=== PATIENT | male | born 1975 | race Caucasian/White ===

== ENCOUNTER 2020-02-10 16:39 | Inpatient (IN) | payer BC, SELFPAY ==
[~2020-02-10] VITALS: Ht 177.8 cm; Wt 109.4 kg
[2020-02-10 16:50] VITALS: BP_SYST 158
--- NOTE | 2020-02-10 16:50 | NUR ---
PT TRIAGED, WAITING IN ER LOBBY. NO ER BEDS CURRENTLY AVAILABLE.
--- NOTE | 2020-02-10 16:55 | NUR ---
PT AAO AND AMBULATORY C/O RLQ ABDOMINAL PAIN FOR THE PAST TWO DAYS THAT IS CONSTANT IN NATURE. PT REPORTS 10/29 CURRENTLY.
[2020-02-10 17:58] LABS: BASOPHILS % (AUTO) 0.3 % (0.0-2.0); EOSINOPHILS # (AUTO) 0.1 K/uL (0.0-0.4); HEMATOCRIT 53.6 % (36-54); HEMOGLOBIN 17.9 g/dL (14.0-18.0); LYMPHOCYTES # (AUTO) 2.3 K/uL (1.0-5.5); LYMPHOCYTES % (AUTO) 16.4 % (20.5-51.5); MEAN CORPUSCULAR HEMOGLOBIN 29 pg (27-31); MEAN CORPUSCULAR HGB CONC 33 % (32-36); MEAN CORPUSCULAR VOLUME 86 fL (79.0-98.0); MONOCYTES # (AUTO) 1.1 K/uL (0.0-1.0); MONOCYTES % (AUTO) 7.9 % (1.7-9.3); NEUTROPHILS # (AUTO) 10.4 K/uL (1.8-7.7); NEUTROPHILS % (AUTO) 74.4 % (40.0-70.0); PLATELET COUNT (AUTO) 380 K/uL (130-430); RED BLOOD CELL COUNT(AUTO) 6.24 MIL/uL (4.2-6.2); RED CELL DISTRIBUTION WIDTH 13.9 % (9.0-15.0)
[2020-02-10 18:11] LABS: CALCIUM 10.1 mg/dL (8.4-11.0); CREATININE 1.13 mg/dL (0.55-1.30)
[2020-02-10 18:17] LABS: ALBUMIN 3.8 g/dL (3.4-4.8); TOTAL BILIRUBIN 0.7 mg/dL (0.0-1.0)
--- NOTE | 2020-02-10 18:36 | NUR ---
Patient to ER bed 07 to gown for evaluation. Side rails up.
--- NOTE | 2020-02-10 18:38 | NUR ---
ER at bedside examining patient.
[2020-02-10] MEDS ORDERED: KETOROLAC TROMETHAMINE 30 MG VIAL IVP ONE (18:45)
[2020-02-10] MEDS ORDERED: NACL 0.9% 1,000 ML IV ONE ×2 (18:45→20:15)
--- NOTE | 2020-02-10 18:46 | NUR ---
ALERT, CALM, RESP UNLABORED, SKIN WARM AND DRY. COMMUNICATES CLEARLY. C/O ABD PAIN , DULL ACHE OVER RLQ. DENIES FEVER/CHILLS, N,V,D NAD
--- NOTE | 2020-02-10 19:28 | NUR ---
BACK FROM CT. TOLERATED WELL
[2020-02-10] MEDS ORDERED: ONDANSETRON HCL 4 MG/2 ML VIAL IVP ONE (20:15)
[2020-02-10] MEDS ORDERED: PIPERACILLIN/TAZO 3.375 GM in NS 50 ML IV ONE (20:15)
--- NOTE | 2020-02-10 20:23 | NUR ---
DR CUMMINS IN TO DISCUSS RESULTS OF CT EXAM
--- NOTE | 2020-02-10 20:38 | NUR ---
CALM, ALERT, RESP UNLABORED, PAIN FREE, STATES FEELING BETTER. MEDICATED ORDERED
[2020-02-10] MEDS ORDERED: PIPERACILLIN/TAZOBACTAM 3.375 GM/VIAL (ZOSYN) IV ONE (20:45)
[2020-02-10] MEDS ORDERED: ONDANSETRON HCL 4 MG/2 ML VIAL ONE (20:46)
--- NOTE | 2020-02-10 22:45 | NUR ---
SBAR REPORT TO RN TO ASSUME CARE
[2020-02-11] MEDS ORDERED: MORPHINE 4 MG/ML INJ. SYRINGE IVP PRN
[2020-02-11] MEDS ORDERED: MORPHINE 2 MG/ML INJ. SYRINGE IVP PRN
[2020-02-11] MEDS: NACL 0.9% 1,000 ML IV SCH ×4 (00:48→20:53)
--- NOTE | 2020-02-11 01:20 | NUR ---
Patient will be admitted to care of . Admitted to [facility] unit. Will go to room 108c. Belongings list completed. Complete and up to date summary report printed. SBAR report to be given at bedside with opportunity for questions.
--- NOTE | 2020-02-11 01:47 | NUR ---
ADMISSION: The patient, ELEN ROSA, 45 y/o, M admitted by DANIEL WOLF MD, was given written information regarding hospital policies, unit procedures and contact persons. Valuables were checked and signed.
--- NOTE | 2020-02-11 01:47 | NUR ---
REPORT WAS ENDORSED FROM ER NURSE. SHOWED ER NURSE THE WBC. ASKED ABOUT LACTIC ACID DRAWS. ER NURSES STATED I GUESS THE DOCTOR DOESN'T WANT IT.
--- NOTE | 2020-02-11 01:50 | NUR ---
INITIAL NOTES PATIENT IS STABLE AND LAYING IN BED. NO S/S OF RESPIRATORY DISTRESS NOTED. CALL LIGHT IN REACH. PATIENT EDUCATED ROUTE DELIVERY MANAGER LIGHT. PATIENT SUCCESSFULLY DEMONSTRATES USAGE OF CALL LIGHT. BED IS LOCKED, AND AT THE LOWEST POSITION. PATIENT EDUCATE DON BED ALARM, PATIENT REFUSED. PLAN OF CARE IS DISCUSSED WITH PATIENT. FALL, SAFETY, ASPIRATION, AND RESPIRATORY PRECAUTIONS WILL BE IN PLACET THROUGHOUT THE SHIFT.
[2020-02-11 01:53] VITALS: BP_SYST 124
[2020-02-11] MEDS ORDERED: PRAV80TA20 PO (02:18)
[2020-02-11] MEDS ORDERED: PANT40TA4 PO (02:18)
[2020-02-11] MEDS ORDERED: LOP600 PO (02:18)
[2020-02-11] MEDS ORDERED: PIPERACILLIN/TAZOBACTAM 3.375 GM/VIAL (ZOSYN) IV ONE (03:16)
[2020-02-11] MEDS: PIPERACILLIN/TAZO 3.375/DEX-IS 50 ML IV SCH ×4 (03:30→20:54)
[2020-02-11 03:34] VITALS: BP_SYST 124
--- NOTE | 2020-02-11 03:52 | NUR ---
PATIENT IS STABLE AND SLEEPING IN BED. NO S/S OF RESPIRATORY DISTRESS NOTED. CALL LIGHT IN REACH.
--- NOTE | 2020-02-11 06:56 | NUR ---
CLOSING NOTES PATIENT IS STABLE AND LAYING IN BED. NO S/S OF RESPIRATORY DISTRESS NOTED. CALL LIGHT IN REACH. BED IS LOCKED, AND AT THE LOWEST POSITION. FALL, SAFETY, ASPIRATION, RESPIRATORY PRECAUTIONS HAS BEEN IN PLACE THROUGHOUT THE SHIFT. WILL CONTINUE TO MONITOR UNTIL REPORT IS ENDORSE TO AM NURSE BY BEDSIDE.
[2020-02-11 07:03] LABS: BASOPHILS % (AUTO) 0.3 % (0.0-2.0); EOSINOPHILS # (AUTO) 0.2 K/uL (0.0-0.4); EOSINOPHILS % (AUTO) 1.9 % (0.0-4.0); HEMATOCRIT 41.6 % (36-54); HEMOGLOBIN 13.9 g/dL (14.0-18.0); LYMPHOCYTES # (AUTO) 1.8 K/uL (1.0-5.5); LYMPHOCYTES % (AUTO) 18.5 % (20.5-51.5); MEAN CORPUSCULAR HEMOGLOBIN 29 pg (27-31); MEAN CORPUSCULAR HGB CONC 34 % (32-36); MEAN CORPUSCULAR VOLUME 87 fL (79.0-98.0); MONOCYTES # (AUTO) 0.9 K/uL (0.0-1.0); MONOCYTES % (AUTO) 8.8 % (1.7-9.3); NEUTROPHILS % (AUTO) 70.5 % (40.0-70.0); PLATELET COUNT (AUTO) 277 K/uL (130-430); RED BLOOD CELL COUNT(AUTO) 4.77 MIL/uL (4.2-6.2); RED CELL DISTRIBUTION WIDTH 13.6 % (9.0-15.0); WHITE BLOOD COUNT (AUTO) 9.9 K/uL (4.8-10.8)
[2020-02-11 07:18] LABS: INR 1.1 (0.80-1.20)
--- NOTE | 2020-02-11 07:23 | NUR ---
CONSULTATION: REASON FOR CONSULT: CHOLECYSTITIS CONSULTING PHYSICIAN: BECCA BLAKE MD ORDERED BY: LUCIANO SPOKE WITH DR SHANNON AND IS AWARE [phone]
[2020-02-11 07:25] LABS: ALBUMIN 2.8 g/dL (3.4-4.8); CALCIUM 8.5 mg/dL (8.4-11.0); CREATININE 1.37 mg/dL (0.55-1.30); POTASSIUM 4.1 mmol/L (3.5-5.1); TOTAL BILIRUBIN 0.9 mg/dL (0.0-1.0)
[2020-02-11 08:00] VITALS: BP_SYST 129
--- NOTE | 2020-02-11 08:00 | NUR ---
INITIAL NOTES ALERT AND ORIENTED IN BED. NO SHORTNESS OF BREATH ON ROOM AIR. ABDOMINAL PAIN IS CONTROLLED AT THIS TIME PER PATIENT. IVF IS INFUSING WELL ON LEFT ANTECUBITAL AREA. EXPRESSED ANXIETY ABOUT UPCOMING SURGERY. EDUCATION PROVIDED, VERBALIZED UNDERSTANDING. PRE-OP PREPARATIONS DONE. FALL AND SAFETY CHECKS DONE. CALL LIGHT WITHIN REACH. WILL MONITOR.
[2020-02-11 08:50] LABS: BILIRUBIN,URINE NEGATIVE (NEGATIVE); CLARITY/URINE TURBID (CLEAR); COLOR,URINE YELLOW (YELLOW); GLUCOSE,URINE NEGATIVE (NEGATIVE); KETONES,URINE NEGATIVE (NEGATIVE); LEUKOCYTE ESTERASE ,URINE NEGATIVE (NEGATIVE); NITRITE, URINE NEGATIVE (NEGATIVE); PH,URINE 5.5 (5.0-8.0); PROTEIN URINE NEGATIVE (NEGATIVE); UROBILINOGEN,URINE 0.2 (0.2-1.0)
--- NOTE | 2020-02-11 08:50 | NUR ---
SURGERY PRE-OP CHECKLIST COMPLETED. CONSENTS SIGNS. PATIENT IS AWARE OF SURGERY. PICKED UP BY SURGERY STAFF VIA GURNEY.
[2020-02-11 08:56] LABS: BLOOD, URINE TRACE (NEGATIVE)
[2020-02-11] MEDS ORDERED: HYDROmorphone 1 MG INJ. 1 MG/ML AMPUL IVP PRN (10:15)
[2020-02-11] MEDS ORDERED: LABETALOL 100 MG/ 20ML VIAL IVP PRN (10:15)
[2020-02-11] MEDS ORDERED: KETOROLAC TROMETHAMINE 30 MG VIAL IVP PRN (10:15)
[2020-02-11] MEDS ORDERED: NACL 0.9% 1,000 ML IV SCH (10:15)
[2020-02-11] MEDS ORDERED: ONDANSETRON HCL 4 MG/2 ML VIAL IVP PRN ×2 (10:15)
[2020-02-11 10:26] LABS: BACTERIA,URINE FEW /HPF (None Seen); WBC,URINE 0-3 /HPF (0-3)
[2020-02-11 10:27] LABS: URINE AMORPHOUS URATE 2+ /HPF (None Seen)
[2020-02-11] MEDS ORDERED: ROCURONIUM BROMIDE 10 MG/ML (ZEMURON) ONE (10:55)
[2020-02-11] MEDS ORDERED: DEXAMETHASONE SOD PHOSPHATE 4 MG/ML VIAL ONE (10:55)
[2020-02-11] MEDS ORDERED: LABETALOL 100 MG/ 20ML VIAL ONE (10:55)
[2020-02-11] MEDS ORDERED: MIDAZOLAM HCL 5 MG/ML VIAL (VERSED) IV ONE (10:55)
[2020-02-11] MEDS ORDERED: BUPIVACAINE /PF 0.25% 30 ML VIAL INJ ONE (10:55)
[2020-02-11] MEDS ORDERED: ONDANSETRON HCL 4 MG/2 ML VIAL ONE (10:55)
[2020-02-11] MEDS ORDERED: PROPOFOL 200MG/ 20ML VIAL (DIPRIVAN) IV ONE (10:55)
[2020-02-11] MEDS ORDERED: METOCLOPRAMIDE HCL 10 MG/2 ML VIAL ONE (10:55)
[2020-02-11] MEDS ORDERED: fentaNYL CITRATE/PF 100 MCG/2 ML AMP ONE (10:55)
[2020-02-11] MEDS ORDERED: SEVOFLURANE 15 MIN GAS INH ONE (10:55)
[2020-02-11] MEDS ORDERED: NS 1000 ML IV.SOLN IV ONE (10:55)
[2020-02-11] MEDS ORDERED: LIDOCAINE/EPI 1% 1:100000 20 ML VIAL INJ ONE (10:55)
[2020-02-11] MEDS ORDERED: NEOSTIGMINE METHYLSULFATE 1 MG/ML, 10 ML VIAL ONE (10:55)
[2020-02-11] MEDS ORDERED: GLYCOPYRROLATE 0.2 MG/ML VIAL ONE (10:55)
[2020-02-11] MEDS ORDERED: HYDROcodone/ACETAMIN 5-325 MG TAB (NORCO/ VICODIN) PO PRN (11:00)
[2020-02-11] MEDS ORDERED: NALOXONE HCL 0.4 MG/ML AMP (NARCAN) IVP PRN ×2 (11:00)
[2020-02-11] MEDS ORDERED: HYDROmorphone 1 MG INJ. 1 MG/ML AMPUL IM PRN (11:00)
[2020-02-11] MEDS ORDERED: HYDROmorphone 1 MG INJ. 1 MG/ML AMPUL IVP ONE (11:30)
[2020-02-11] MEDS ORDERED: HYDROmorphone 1 MG INJ. 1 MG/ML AMPUL ONE (11:48)
[2020-02-11 12:00] VITALS: BP_SYST 137
--- NOTE | 2020-02-11 12:00 | NUR ---
FROM SURGERY PATIENT CAME BACK FROM SURGERY, AWAKE AND ORIENTED. NO SHORTNESS OF BREATH ON ROOM AIR. PAIN IS CONTROLLED AT THIS TIME PER PATIENT. VITAL SIGNS MONITORING STARTED. RESUMED IVF VIA LEFT ANTECUBITAL ORDERED. DENIES ANY NAUSEA OR DIZZINESS. STARTED ON LOW FAT DIET ORDERED. ENCOURAGED PATIENT TO EAT SMALL SERVINGS AT FIRST. FALL AND SAFETY CHECKS DONE. SCD PLACED ON BOTH LEGS. CALL LIGHT WITHIN REACH. WILL MONITOR.
--- NOTE | 2020-02-11 14:15 | NUR ---
ROUNDS PATIENT IS ASLEEP AT THIS TIME. NO DISTRESS ON ROOM AIR. IVF INFUSING WELL. VITAL SIGNS STABLE. ENSURED SAFETY. CALL LIGHT WITHIN REACH.
[2020-02-11 15:39] VITALS: BP_SYST 120
--- NOTE | 2020-02-11 16:00 | NUR ---
PAIN ASSISTED PATIENT TO THE RESTROOM. STILL NO BOWEL MOVEMENT OR PASSING OF GAS. ATE MOST OF HIS LUNCH. COMPLAINED OF ABDOMINAL PAIN. MEDICATED. ENCOURAGED USE OF INCENTIVE SPIROMETER. CAN REACH UP TO 1500. SAFETY CHECKS DONE. WILL CONTINUE TO MONITOR.
--- NOTE | 2020-02-11 18:30 | NUR ---
CLOSING NOTES RESTING IN BED. ASSISTED TO THE RESTROOM AND BACK TO BED. PAIN IS CONTROLLED AT THIS TIME PER PATIENT. NO SHORTNESS OF BREATH ON ROOM AIR. PATIENT DECIDED TO STAY HERE FOR TONIGHT TO GET MORE REST. ALL NEEDS MET THROUGHOUT SHIFT. FALL AND SAFETY CHECKS DONE. CALL LIGHT WITHIN REACH. WILL ENDORSE TO DESIGN RELEASE ENGINEER NURSE.
--- NOTE | 2020-02-11 19:30 | NUR ---
Opening notes Received report. Patient is resting in bed, no signs of distress noted. Breathing even and unlabored on room air. Patient complains of 4/10 pain to abdomen, states it is tolerable. IV patent and intact, infusing fluids. Patient walked to bathroom and back to bed with steady gait. Patient educated on using incentive spirometer. Patient verbalized understanding and able to inspire 1000 ml. No other needs at this time. Call light with the patient. Safety precautions in place.
[2020-02-11 20:00] VITALS: BP_SYST 139
--- NOTE | 2020-02-11 21:00 | NUR ---
Medications given. Educated the action and side effects of Zosyn. Patient verbalized understanding and tolerated well. No other needs at this time. Call light with the patient. Safety precautions in place.
--- NOTE | 2020-02-11 23:00 | NUR ---
RN rounds Patient is resting in bed, no signs of distress noted. Breathing even and unlabored on room air. IVF infusing well. Patient given jaqueline crackers. No other needs. Call light with the patient. Safety precautions in place.
[2020-02-12 00:58] VITALS: BP_SYST 148
--- NOTE | 2020-02-12 01:30 | NUR ---
IV reinsertion Patient complaining of IV leaking. New IV inserted into right hand 22 gauge. resumed IVF. No other needs. call light with the patient. Safety precautions in place.
[2020-02-12] MEDS: PIPERACILLIN/TAZO 3.375/DEX-IS 50 ML IV SCH ×3 (02:17→15:11)
[2020-02-12 04:00] VITALS: BP_SYST 132
--- NOTE | 2020-02-12 04:00 | NUR ---
RN rounds Patient resting in bed, no signs of distress noted. Breathing even and unlabored on room air. Patient stated he has passed gas. No needs. Call light with the patient. Safety precautions in place.
--- NOTE | 2020-02-12 07:10 | NUR ---
Closing notes Patient is resting in bed, no signs of distress noted. Breathing even and unlabored on room air. No complaints of pain or discomfort. IV patent and intact, infusing fluids. Incision clean dry and intact, no drainage, open to air. All needs met throughout the shift. Call light with the patient. Safety precautions in place. Will endorse care to day shift RN.
[2020-02-12] MEDS: NACL 0.9% 1,000 ML IV SCH (07:55)
[2020-02-12 08:00] VITALS: BP_SYST 135
[2020-02-12 12:13] VITALS: BP_SYST 125
[2020-02-12 14:49] VITALS: BP_SYST 135
--- NOTE | 2020-02-12 15:42 | NUR ---
PAGED PAGED DANIEL MARTINEZ AT [phone] SPOKE WITH LAKISHA.
[2020-02-12] MEDS ORDERED: HYDR-4272 PO (15:48)
[2020-02-12 16:15] VITALS: BP_SYST 129
== END 2020-02-12 16:20 | disposition home or self-care (01) | DRG 418 ==
LOC: EDBD 16:39 → SED 16:39 → SMU 23:47
PROVIDERS: ADMIT Internal Medicine Hospice and Palliative Medicine; ATTEND Internal Medicine Hospice and Palliative Medicine
PROC: 0FT44ZZ Resection of Gallbladder, Percutaneous Endoscopic Approach (ICD-10-PCS; principal; 2020-02-11 09:00)
DX: K80.00 Calculus of gallbladder with acute cholecystitis without obstruction (principal); R65.10 Systemic inflammatory response syndrome (SIRS) of non-infectious origin without acute organ dysfunction; E78.00 Pure hypercholesterolemia, unspecified; E78.5 Hyperlipidemia, unspecified; Z79.899 Other long term (current) drug therapy; Z03.818 Encounter for observation for suspected exposure to other biological agents ruled out
CPT/HCPCS: 36415; 80053; 81000-TC; 83690-TC; 85025; 85610-TC; 86886; 86900; 86901; 87081; 87086; 88304; 96365; 96367; 96375; 96376; 99285; C1727; J1100; J1170; J1885; J2250; J2270; J2405; J2543; J2704; J2710; J2765; J3010; J3490; J7030; J7060; U0003-CS